=== PATIENT | female | born 1980 | race Caucasian/White ===

== ENCOUNTER 2024-02-16 21:19 | Inpatient (IN) | payer MEDICARE, MEDICAID, SELFPAY ==
--- NOTE | ~2024-02-16 | CT_ITS ---
CT of the Abdomen and Pelvis: Indication: Abdominal pain Technique: 2.5 mm axial scans were obtained through the abdomen and pelvis following intravenous adm inistration of 100 cc of Omnipaque 350. Dose reduction technique was used on this scan by utilizing a utomated exposure control and iterative reconstruction technique. The dose-length product (DLP) was 9 06.76 mGy-cm. Findings: Scans through the lung bases are unremarkable. The liver, pancreas, gallbladder, adrenals and kidneys are within normal limits. Probable splenic cys t present. No evidence of aortic aneurysm. No lymphadenopathy. No bowel obstruction or bowel wall thickening. There is no evidence to suggest acute appendicitis. Images through the pelvis were performed. Suspected urinary bladder wall thickening diffusely. No pel gaby mass seen. No ascites. L2 compression fracture present, likely chronic. Impression: Suspected cystitis. Correlate with urinalysis. L2 compression fracture, likely chronic. Reviewed, dictated and finalized at [facility]. Impression: Suspected cystitis. Correlate with urinalysis. L2 compression fracture, likely chronic.
--- NOTE | ~2024-02-16 | XR_ITS ---
EXAM: XR knee RT 3V DATE: 02/17/2024 16:09 HISTORY: Fall . COMPARISON: None available. FINDINGS: Normal mineralization. No fracture or dislocation. No lytic or blastic lesion. Moderate la teral joint space narrowing. Quadriceps enthesopathy. Mild patellofemoral and lateral compartment ost eophytosis. No erosion or periosteal change. Soft tissues within normal limits. IMPRESSION: No acute osseous finding in the right knee. Reviewed, dictated and finalized at location K.
--- NOTE | ~2024-02-16 | CT_ITS ---
Non-contrast Head CT History: Altered mental status Technique: Axial non-contrast imaging of the brain was performed. Dose reduction technique was used on this scan by utilizing automated exposure control and iterative reconstruction technique. The dose -length product (DLP) was 605.33 mGy-cm. Findings: There is no evidence of intracranial hemorrhage, mass lesion, or acute infarct. Brain par enchyma appears normal. The ventricles and subarachnoid spaces are normal in size. The calvarium ap pears normal. There are bilateral maxillary sinus retention cysts or polyps. The remaining visualized paranasal sinuses and mastoid air cells are clear. Impression: No intracranial abnormality seen. Mild sinus disease, as above. Reviewed, dictated and finalized at [facility]. Impression: No intracranial abnormality seen. Mild sinus disease, as above.
--- NOTE | ~2024-02-16 | XR_ITS ---
Portable chest x-ray Comparison: None Clinical History: Altered mental status Findings: Lungs are clear, without focal consolidation or pleural effusion. Cardiomediastinal silho uette is unremarkable. Bones and soft tissues are unremarkable. Impression: Clear lungs. Reviewed, dictated and finalized at location [facility]. Impression: Clear lungs.
[2024-02-16 21:16] VITALS: BP 101/64; PULSE 87; RESP 19; TEMP 36.4; O2SAT 100
--- NOTE | 2024-02-16 22:24 | ED.ABDPAIN ---
HPI - Abdominal Pain General Chief Complaint: Abdominal Pain Stated Complaint: Abdominal Pain Time Seen by Provider: 02/16/24 21:20 History of Present Illness HPI narrative: 43-year-old female with a history of severe intellectual disability, bipolar disorder type 1 with psychotic features, AFib, history of blood clots, constipation, chronic anticoagulation with Xarelto presents emergency department with a caregiver at bedside for altered mental status. The following history is provided by patient's caregiver. States patient has been in and out of multiple hospitals including multiple [facility] and [facility]. She has been evaluated in the ED and admitted for confusion, decreased p.o. intake, diarrhea. At one point she was diagnosed with the UTI and was started on Keflex and was discontinued due to diarrhea. She lives at [facility] living [facility] in [place]. The patient's caregivers of her historian and is unable to provide many details. She does state earlier today she noticed a pink tension the patient's urine. States she has had decreased energy and has been refusing showers and will sit in her urine and feces which is abnormal for her. Also states the patient keeps forgetting the caregivers name and that is also abnormal for her. Her mother Alex Zee is her POA who resides at [place]. Patient is a poor historian, however upon questioning she is reporting pain to her suprapubic abdomen, burning with urination and diarrhea. Related Data Allergies Allergy/AdvReac Type Severity Reaction Status Date / Time aripiprazole [From Abilify] Allergy Unknown Verified 02/16/24 21:33 bee pollen Allergy Unknown Verified 02/16/24 21:33 haloperidol [From Haldol] Allergy Unknown Verified 02/16/24 21:33 lithium Allergy Unknown Verified 02/16/24 21:33 quetiapine [From Seroquel] Allergy Unknown Verified 02/16/24 21:33 Review of Systems Review of Systems: CONSTITUTIONAL: Denies fever, chills, or sweats. EYES: Denies visual changes, redness, or discharge. ENT: Denies rhinorrhea, congestion, sore throat, or otalgia. CARDIOVASCULAR: Denies chest pain, palpitations, or edema. RESPIRATORY: Denies cough or dyspnea. GASTROINTESTINAL: See HPI GENITOURINARY: Denies dysuria or hematuria. SKIN: Denies rash or itching. MUSCULOSKELETAL: Denies back pain, joint pain, or myalgia. NEUROLOGIC: see HPI PSYCHIATRIC: Denies anxiety or depression. Exam Narrative: GENERAL: Well-appearing, well-nourished, and in no acute distress. Nontoxic appearing. Pleasant and conversational HEAD: Normocephalic, atraumatic. EYES: PERRLA and EOMI. ENT: Nares clear, no rhinorrhea or epistaxis. Mucous membranes moist. NECK: Supple. CHEST: Clear to auscultation. No respiratory distress. HEART: Regular rate and rhythm. No murmur heard. Normal peripheral pulses. ABDOMEN: Normoactive bowel sounds. Abdomen soft mild tenderness in the suprapubic region. No rebound, guarding or rigidity. No CVA tenderness. EXTREMITIES: Normal range of motion. No edema. SKIN: Warm, dry, no rash. NEURO: No focal deficits. Alert and oriented x1. Moving all extremities spontaneously Course Vital Signs Vital signs: Vital Signs Temperature 97.6 F 02/16/24 21:16 Pulse Rate 87 02/16/24 21:16 Respiratory Rate 19 02/16/24 21:16 Blood Pressure 101/64 02/16/24 21:16 Pulse Oximetry 100 02/16/24 21:16 Oxygen Delivery Room Air 02/16/24 21:16 Temperature 97.6 F 02/16/24 21:16 Pulse Rate 77 02/16/24 23:31 Respiratory Rate 14 02/16/24 23:31 Blood Pressure 110/70 02/16/24 23:31 Pulse Oximetry 100 02/16/24 23:31 Oxygen Delivery Room Air 02/16/24 21:16 MDM - Abdominal Pain MDM Narrative Medical decision making narrative: 43-year-old female with a history of severe intellectual disability, bipolar disorder type 1 with psychotic features, AFib, history of blood clots, constipation, chronic anticoagulation with Xarelto presents emergency
--- NOTE | 2024-02-16 22:34 | ECG_ITS ---
SEE SCANNED COPY FOR CONFIRMED REPORT MTDD
[2024-02-16 23:28] LABS: Basophils Absolute Auto 0.1 K/mm3 (0.0-0.1); Basophils Percent Auto 0.7 % (0.2-1.2); Eosinophils Absolute Auto 0.1 K/mm3 (0-0.3); Eosinophils Percent Auto 1.3 % (0-4.4); Hematocrit 41.5 % (37.0-47.0); Hemoglobin 13.4 g/dL (12.0-15.0); Immature Granulocyte Absolute 0.15 K/mm3 (0.00-0.031); Immature Granulocyte Percent A 2.1 % (0-0.5); Lymphocytes Absolute Auto 2.34 K/mm3 (0.9-3.2); Mean Corpuscular HGB Conc 32.3 g/dl (32-36); Mean Corpuscular Hemoglobin 30.7 pg (26-34); Mean Corpuscular Volume 95.2 fl (80-100); Mean Platelet Volume 11.2 fl (7.4-10.4); Monocytes Absolute Auto 0.7 K/mm3 (0.1-0.6); Monocytes Percent Auto 9.2 % (2.6-8.5); Neutrophils Absolute Auto 3.8 K/mm3 (1.3-6.7); Neutrophils Percent Auto 53.7 % (45.5-73.1); Platelet Count Result 118 k/mm3 (150-375); Red Blood Count 4.36 M/mm3 (4.2-5.4); Red Cell Distribution Width 14.9 % (11.5-14.5); White Blood Count 7.1 K/mm3 (4.5-10.0)
[2024-02-16] MEDS: SODIUM CHLORIDE 0.9% IV 1,000 ML 999 ML IV CONT (23:29)
[2024-02-16 23:31] VITALS: BP 110/70; PULSE 77; RESP 14; O2SAT 100
--- NOTE | 2024-02-16 23:45 | PC.NURSE ---
care and report given to VICTOR MANUEL Shaikh. all questions answered.
[2024-02-16 23:48] LABS: Troponin I < 0.012 ng/mL (0.000-0.034)
[2024-02-16 23:49] LABS: Alanine Aminotransferase 21 U/L (6-35); Albumin Level 3.4 g/dL (3.5-5.1); Alkaline Phosphatase 81 U/L (38-126); Anion Gap 3 mmol/L (4-12); Aspartate Amino Transferase 34 U/L (14-36); Bilirubin,Total 0.6 mg/dL (0.2-1.3); Blood Urea Nitrogen 13 mg/dL (7-17); Calcium 8.8 mg/dL (8.4-10.2); Carbon Dioxide 24 mmol/L (22-30); Chloride 109 mmol/L (98-107); Estimated CRCL calculation 85 ml/min; Estimated Glomerular Filt Rate > 60; Glucose 71 mg/dL (65-110); Lipase 54 U/L (23-300); Potassium 4.6 mmol/L (3.4-5.0); Sodium 136 mmol/L (137-145)
[2024-02-17 00:18] LABS: Creatine Kinase 37 U/L (30-135)
[2024-02-17 01:25] LABS: Appearance Urine Clear (Clear); Bacteria Urine None Seen /hpf; Bilirubin Urine Negative (Negative); Blood Urine 2+ (Negative); Color Urine Yellow (Yellow); Glucose Urine UA Negative (Negative); Ketones Urine 1+ mg/dL (Negative); Leukocyte Esterase Ur 3+ LEU/UL (Negative); Nitrate Urine Negative (Negative); Non Pathogenic Casts 0-2; Protein Urine Negative (Negative); RBC Urine 21-50 /hpf (0-2); Specific Grav Ur 1.007 (1.001-1.035); Squamous Epithelial Cell Urine None Seen /hpf (Few); Urobilinogen Urine 0.2 mg/dL (<2.0); WBC Urine 51-100 /hpf (0-3); pH Urine 7.5 (5.0-9.0)
[2024-02-17 01:34] LABS: Amphetamine Screen Urine Negative (Negative); Barbiturate Screen Urine Negative (Negative); Benzodiazepines Screen Urine Negative (Negative); Cannabinoid Screen Urine Negative (Negative); Cocaine Screen Urine Negative (Negative); Methadone Screen Urine Negative (Negative); Opiate Screen Urine Negative (Negative); Phencyclidine Screen Urine Negative (Negative)
[2024-02-17 02:05] LABS: Add Urine Microscopic? YES
[2024-02-17 02:05] LABS: Partial Thromboplastin Time 28.5 Seconds (22.3-36.8)
[2024-02-17 02:33] LABS: INR 1.4; Prothrombin Time 17.7 Seconds (11.1-14.7)
--- NOTE | 2024-02-17 04:02 | PM.IMHP ---
H&P: HPI History of Present Illness Date/Time: 02/17/24 04:02 Chief Complaint: generalized weakness Narrative: This is a 43-year-old female with past medical history significant for intellectual disability, patient was brought to the emergency room due to generalized weakness, diarrhea, fatigue, altered mental status, States that patient was unable to recognize her. Has had admissions to to outside hospitals however can not really contribute much to history taking in a meaningful way. here preliminary workup was significant for urinalysis was numerous WBCs present. At the time of this dictation chest x-ray CT of abdomen and pelvis and head are pending. patient was started on Rocephin and has been admitted for further evaluation management and treatment. Portable chest x-ray Comparison: None Clinical History: Altered mental status Findings:? Lungs are clear, without focal consolidation or pleural effusion.? Cardiomediastinal silhouette is unremarkable. Bones and soft tissues are unremarkable. ? Impression: ? Clear lungs. CT of the Abdomen and Pelvis: Indication: Abdominal pain Technique:? 2.5 mm axial scans were obtained through the abdomen and pelvis following intravenous administration of 100 cc of Omnipaque 350. Dose reduction technique was used on this scan by utilizing automated exposure control and iterative reconstruction technique. The dose-length product (DLP) was 906.76 mGy-cm. Findings:? Scans through the lung bases are unremarkable. The liver, pancreas, gallbladder, adrenals and kidneys are within normal limits. Probable splenic cyst present. No evidence of aortic aneurysm.? No lymphadenopathy. No bowel obstruction or bowel wall thickening. There is no evidence to suggest acute appendicitis. Images through the pelvis were performed. Suspected urinary bladder wall thickening diffusely. No pelvic mass seen. No ascites. L2 compression fracture present, likely chronic. Impression: Suspected cystitis. Correlate with urinalysis. L2 compression fracture, likely chronic. Non-contrast Head CT History: Altered mental status Technique:? Axial non-contrast imaging of the brain was performed. Dose reduction technique was used on this scan by utilizing automated exposure control and iterative reconstruction technique. The dose-length product (DLP) was 605.33 mGy-cm. Findings:? There is no evidence of intracranial hemorrhage, mass lesion, or acute infarct.? Brain parenchyma appears normal.? The ventricles and subarachnoid spaces are normal in size.? The calvarium appears normal. There are bilateral maxillary sinus retention cysts or polyps. The remaining visualized paranasal sinuses and mastoid air cells are clear. Impression: No intracranial abnormality seen. Mild sinus disease, as above. EXAM:? XR knee RT 3V DATE: 02/17/2024 16:09 HISTORY: Fall . COMPARISON:? None available. FINDINGS:? Normal mineralization. No fracture or dislocation. No lytic or blastic lesion. Moderate lateral joint space narrowing. Quadriceps enthesopathy. Mild patellofemoral and lateral compartment osteophytosis. No erosion or periosteal change. Soft tissues within normal limits. IMPRESSION: No acute osseous finding in the right knee. Review of Systems Review of Systems: ROS unobtainable: Yes unobtainable due to medical condition ( Intellectual disability, delirium) [facility] Social History Social History Smoking status: Never smoker Alcohol intake: never Substance use: never Spiritual care concerns: No Meds Home Medications and Allergies Home Medications Medication Instructions Recorded Confirmed Type calcium carbonate 1,000 1 tablet PO Q4-6H PRN Indigestion 02/17/24 02/17/24 History mg-simethicone 60 mg chewable tablet cholecalciferol (vitamin D3) 50 50 mcg PO DAILY 02/17/24 02/17/24 History mcg (2,000 unit) tablet citalop
[2024-02-17 05:07] VITALS: BP 128/81; PULSE 73; RESP 16; O2SAT 100
[2024-02-17 05:29] VITALS: BMI 24.5
[2024-02-17 05:37] VITALS: BMI 24.5
[2024-02-17 06:00] VITALS: BP 101/68; PULSE 73; RESP 18; TEMP 36.5; O2SAT 100
[2024-02-17 06:37] LABS: Lactic Acid Reflex 0.8 mmol/L (0.7-2.0)
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
[2024-02-17 10:31] VITALS: PULSE 73; RESP 18; O2SAT 100
[2024-02-17 12:49] LABS: Salicylate < 1.0 mg/dL (2-20)
[2024-02-17 12:50] LABS: Acetaminophen < 10 ug/mL (10-30)
[2024-02-17 14:00] VITALS: BP 87/60; PULSE 76; RESP 14; TEMP 36.6; O2SAT 99
[2024-02-17] MEDS: SODIUM CHLORIDE 0.9% IV 500 ML IV CONT (14:17)
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
[2024-02-17] MEDS: SODIUM CHLORIDE 0.9% IV 1,000 ML 999 ML IV CONT (16:22)
--- NOTE | 2024-02-17 18:32 | PC.NURSE ---
Addendum entered by Nevaeh Cardenas RN 02/17/24 18:37: MD AWARE Original Note: Patient becoming increasingly agitated and fearful of staff. Lost IV access, patient will not allow staff to attempt another one. Hospitalist ordered tele, pt is refusing to let staff put the monitor on. Kicking and hitting. Will give the patient time to relax and de-escalate appropriately.
[2024-02-17 20:00] LABS: Phosphorus 4.1 mg/dL (2.5-4.5)
--- NOTE | 2024-02-17 21:28 | PC.NURSE ---
Pt's mother (POA) called to check on patient. The POA asked for patient to become a confidential patient and would like to give a passcode that has to be used in order to give information about the patient. Passcode [id number]. POA also requested to add sister as secondary contact.
[2024-02-18 05:35] VITALS: BP 99/59; PULSE 94; RESP 17; TEMP 36.6; O2SAT 100
[2024-02-18 05:56] LABS: Basophils Absolute Auto 0.1 K/mm3 (0.0-0.1); Basophils Percent Auto 1.1 % (0.2-1.2); Eosinophils Percent Auto 0.6 % (0-4.4); Hematocrit 37.8 % (37.0-47.0); Hemoglobin 12.2 g/dL (12.0-15.0); Immature Granulocyte Absolute 0.14 K/mm3 (0.00-0.031); Immature Granulocyte Percent A 2.3 % (0-0.5); Immature Platelet Fraction Pct 4.4 % (0.9-11.2); Lymphocytes Absolute Auto 2.68 K/mm3 (0.9-3.2); Lymphocytes Percent Auto 43.2 % (18.3-44.2); Mean Corpuscular HGB Conc 32.3 g/dl (32-36); Mean Corpuscular Hemoglobin 31.3 pg (26-34); Mean Corpuscular Volume 96.9 fl (80-100); Monocytes Absolute Auto 1.2 K/mm3 (0.1-0.6); Monocytes Percent Auto 19.5 % (2.6-8.5); Neutrophils Absolute Auto 2.1 K/mm3 (1.3-6.7); Neutrophils Percent Auto 33.3 % (45.5-73.1); Platelet Count Result 126 k/mm3 (150-375); Red Cell Distribution Width 15.1 % (11.5-14.5); White Blood Count 6.2 K/mm3 (4.5-10.0)
[2024-02-18 06:07] LABS: Ammonia < 9 umol/L (9-30)
[2024-02-18 06:11] LABS: Alanine Aminotransferase 17 U/L (6-35); Alkaline Phosphatase 82 U/L (38-126); Anion Gap 8 mmol/L (4-12); Aspartate Amino Transferase 20 U/L (14-36); Bilirubin,Total 0.4 mg/dL (0.2-1.3); Blood Urea Nitrogen 16 mg/dL (7-17); Calcium 8.6 mg/dL (8.4-10.2); Carbon Dioxide 20 mmol/L (22-30); Chloride 112 mmol/L (98-107); Creatine Kinase 30 U/L (30-135); Estimated CRCL calculation 85 ml/min; Estimated Glomerular Filt Rate > 60; Glucose 121 mg/dL (65-110); Magnesium 1.9 mg/dL (1.6-2.3); Phosphorus 5.3 mg/dL (2.5-4.5); Potassium 3.7 mmol/L (3.4-5.0); Sodium 140 mmol/L (137-145)
[2024-02-18 06:31] LABS: Procalcitonin 0.1 ng/mL
[2024-02-18 08:00] VITALS: O2SAT 94
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
[2024-02-18] MEDS: DIVALPROEX SODIUM ER 500 MG TAB.24H 1000 MG PO ×2 (09:58→21:07)
[2024-02-18] MEDS: CITALOPRAM HYDROBROMIDE 20 MG TABLET PO (09:58)
[2024-02-18] MEDS: RIVAROXABAN 20 MG TABLET PO (09:59)
[2024-02-18] MEDS: MULTIVITAMINS THERAPEUTIC TAB (*BKC) 1 TABLET PO (09:59)
[2024-02-18] MEDS: THIAMINE HCL 100 MG TABLET PO (09:59)
--- NOTE | 2024-02-18 10:32 | PC.NURSE ---
This RN made a call to the facility of this patient to discuss the need for clozapine to be brought in because we do not have it here. Initially the woman stated she would bring it in until she asked for the patients room number. At this time This RN informed her she could not receive any information and would need to leave the medication at the front office spec. At this time she became frustrated and questioned why she is able to bring the patients medications but cannot receive any information Will follow up to ensure the medication will be brought in.
[2024-02-18 12:54] VITALS: BMI 24.5
[2024-02-18 14:00] VITALS: BP 100/59; PULSE 93; RESP 22; TEMP 36.1; O2SAT 90
--- NOTE | 2024-02-18 15:28 | PHAR ---
Addendum entered by Marla VizcainoPh. 02/18/24 15:35: TAKE ONE TABLET EVERY MORING Original Note: RX [id number] IDENTIFIED TO CONTAIN DRUG NAME: CLOZAPINE INGREDIENTS: CLOZAPINE -- 50 MG COLOR: PALE YELLOW SHAPE: NIGHTMUTE IMPRINT: 55 ; C C IMPRINT CODE DESCRIPTION: TABLET IS DEBOSSED C SCORELINE C ON ONE SIDE AND 55 ON THE OTHER SIDE. FORM: ORAL TABLET
--- NOTE | 2024-02-18 15:29 | PHAR ---
RX [id number] IDENTIFIED TO CONTAIN DRUG NAME: CLOZAPINE INGREDIENTS: CLOZAPINE -- 100 MG COLOR: PALE YELLOW SHAPE: CHIGNIK LAGOON IMPRINT: 57 ; C C IMPRINT CODE DESCRIPTION: TABLET IS DEBOSSED C SCORELINE C ON ONE SIDE AND 57 ON THE OTHER SIDE. FORM: ORAL TABLET ONE AND ON-HALF TABS (150MG) EVERY EVENING
--- NOTE | 2024-02-18 16:48 | PC.NURSE ---
home medications locked in patient closet.
[2024-02-18 20:59] VITALS: BP 93/63; PULSE 94; RESP 16; TEMP 36.6; O2SAT 98
[2024-02-19 05:30] LABS: Basophils Absolute Auto 0.2 K/mm3 (0.0-0.1); Basophils Percent Auto 1.8 % (0.2-1.2); Eosinophils Absolute Auto 0.2 K/mm3 (0-0.3); Eosinophils Percent Auto 1.7 % (0-4.4); Hematocrit 41.5 % (37.0-47.0); Hemoglobin 12.8 g/dL (12.0-15.0); Immature Granulocyte Absolute 0.29 K/mm3 (0.00-0.031); Immature Granulocyte Percent A 3.3 % (0-0.5); Immature Platelet Fraction Pct 5.1 % (0.9-11.2); Lymphocytes Percent Auto 52.8 % (18.3-44.2); Mean Corpuscular HGB Conc 30.8 g/dl (32-36); Mean Corpuscular Hemoglobin 30.8 pg (26-34); Mean Platelet Volume 11.4 fl (7.4-10.4); Monocytes Absolute Auto 1.1 K/mm3 (0.1-0.6); Monocytes Percent Auto 12.3 % (2.6-8.5); Neutrophils Absolute Auto 2.5 K/mm3 (1.3-6.7); Neutrophils Percent Auto 28.1 % (45.5-73.1); Platelet Count Result 131 k/mm3 (150-375); Red Blood Count 4.15 M/mm3 (4.2-5.4); Red Cell Distribution Width 15.5 % (11.5-14.5); White Blood Count 8.7 K/mm3 (4.5-10.0)
[2024-02-19 05:36] VITALS: BP 92/57; PULSE 83; RESP 16; TEMP 36.6; O2SAT 100
[2024-02-19 05:43] LABS: Alanine Aminotransferase 22 U/L (6-35); Albumin Level 3.1 g/dL (3.5-5.1); Alkaline Phosphatase 79 U/L (38-126); Anion Gap 9 mmol/L (4-12); Aspartate Amino Transferase 33 U/L (14-36); Bilirubin,Total 0.5 mg/dL (0.2-1.3); Blood Urea Nitrogen 15 mg/dL (7-17); Calcium 8.7 mg/dL (8.4-10.2); Carbon Dioxide 19 mmol/L (22-30); Chloride 115 mmol/L (98-107); Creatine Kinase 30 U/L (30-135); Estimated CRCL calculation 85 ml/min; Estimated Glomerular Filt Rate > 60; Glucose 114 mg/dL (65-110); Phosphorus 4.2 mg/dL (2.5-4.5); Potassium 3.3 mmol/L (3.4-5.0); Sodium 143 mmol/L (137-145)
[2024-02-19] MEDS: DIVALPROEX SODIUM ER 500 MG TAB.24H 1000 MG PO ×2 (08:42→21:00)
[2024-02-19] MEDS: THIAMINE HCL 100 MG TABLET PO (08:42)
[2024-02-19] MEDS: RIVAROXABAN 20 MG TABLET PO (08:42)
[2024-02-19] MEDS: MULTIVITAMINS THERAPEUTIC TAB (*BKC) 1 TABLET PO (08:42)
[2024-02-19] MEDS: CITALOPRAM HYDROBROMIDE 20 MG TABLET PO (08:42)
--- NOTE | 2024-02-19 11:00 | PM.IMPN ---
Progress Note: A&P Assessment and Plan (1) Intellectual disability: Code(s): F79 - Unspecified intellectual disabilities Status: Acute (2) Urinary tract infection: Qualifiers: Hematuria presence: with hematuria Urinary tract infection type: acute cystitis Qualified Code(s): N30.01 - Acute cystitis with hematuria Code(s): N39.0 - Urinary tract infection, site not specified Status: Acute (3) Altered mental status: Qualifiers: Altered mental status type: unspecified Qualified Code(s): R41.82 - Altered mental status, unspecified Code(s): R41.82 - Altered mental status, unspecified Status: Acute Plan This is a 43-year-old female with history of intellectual disability, bipolar disorder type 1 with psychotic features, paroxysmal atrial fibrillation, history of blood clot on Xarelto, constipation who resides at a fdc called [facility] in [place]. The patient herself is an unreliable historian. History is taken from nursing team, ER staff, chart review. Reportedly, the patient has been in and out of the hospitals including [facility] an [facility] being evaluated for confusion decreased p.o. intake and diarrhea. At 1 point she was diagnosed with UTI and started on Keflex. She is again brought in by her caregiver who unable to provide many details but states she noticed pink tinge in the patient's urine the patient has had decreased energy and refusing showers and will sit in her urine and feces and is only A&O x1 and forget her caregiver's name which is abnormal for her. The patient's POA is her mother Erendira Zee who resides in [place]. In [place] ER evaluation revealed vitals within normal limits white blood cell count 7.1 platelet count 118 hemoglobin 13.4 INR 1.4 sodium 136 chloride 109 serum creatinine 0.70 with normal liver function test normal lipase normal TSH albumin 3.4. Urinalysis indicative of UTI and urine culture pending. Blood cultures pending. Ceftriaxone IV given. CT head unremarkable. CT abdomen pelvis indicative of cystitis. Chest x-ray unremarkable. December 19 update: Reportedly the mother is going to arrive tonight. He has been accepted at [facility], discussions to be finalized with coordination in the mother on disposition. The patient continues to be pleasant, no reports of overly aggressive behavior. Soft blood pressures. Continue ceftriaxone. Continue to draw daily labs for refeeding syndrome monitoring. Urine culture still pending. We have obtained her clozapine from the fdc and have restarted that since 02/17. Acute toxic encephalopathy, resolved. -CT head on admission negative. -it is certainly hard to delineate whether she was cantankerous because of her bipolar and intellectual disability or she had toxic encephalopathy due to UTI. Her behavior seems more so related to psychiatric condition since she has been admitted. -continue ceftriaxone 1 g q.day for at least 7 days. -follow-up blood cultures. Follow-up urine culture -ammonia level, acetaminophen, salicylates normal. Urine tox drug screen negative Intellectual disability with bipolar disorder -continue home medications divalproex 1000 mg p.o. b.i.d., clozapine 150 mg p.o. clozapine is non formulary and we are currently try to obtain that from the fdc. VICTOR MANUEL Reyes will be calling [facility] to have them bring it in. -she apparently takes Benadryl and hydroxyzine p.r.n. at home. It would be prudent to hold these. -avoid pharmacological sedation/narcotics at all cost. If patient becomes physically aggressive then physical restraints is the 1st indicated treatment to prevent adverse effects and complications in evaluating the patient. Patient becomes lord at times but she is not aggressive towards staff thus far. Paroxysmal atrial fibrillation/history of blood clot on Xarelto -currently normal sinus rhythm. Continue Xarelto. History of constipation, now diarrhea -patient has had a hist
[2024-02-19] MEDS: POTASSIUM CHLORIDE 20 MEQ PACKET (FOR LIQUID) PO (12:00)
[2024-02-19] MEDS: POTASSIUM CHLORIDE 20 MEQ ER TABLET PO (12:00)
[2024-02-19 14:10] VITALS: BP 88/57; PULSE 90; RESP 14; TEMP 36.4; O2SAT 100
[2024-02-19 15:12] VITALS: BP 95/64
[2024-02-19 21:15] VITALS: BP 93/64; PULSE 95; RESP 18; TEMP 36.3; O2SAT 100
[2024-02-20 05:47] VITALS: BP 106/72; PULSE 97; RESP 16; TEMP 36.2; O2SAT 100
[2024-02-20 06:28] LABS: Basophils Absolute Auto 0.1 K/mm3 (0.0-0.1); Basophils Percent Auto 0.7 % (0.2-1.2); Eosinophils Absolute Auto 0.2 K/mm3 (0-0.3); Eosinophils Percent Auto 1.7 % (0-4.4); Hematocrit 39.3 % (37.0-47.0); Hemoglobin 11.9 g/dL (12.0-15.0); Immature Granulocyte Absolute 0.67 K/mm3 (0.00-0.031); Immature Granulocyte Percent A 6.2 % (0-0.5); Lymphocytes Absolute Auto 4.91 K/mm3 (0.9-3.2); Lymphocytes Percent Auto 45.2 % (18.3-44.2); Mean Corpuscular HGB Conc 30.3 g/dl (32-36); Mean Corpuscular Hemoglobin 31.6 pg (26-34); Mean Corpuscular Volume 104.2 fl (80-100); Mean Platelet Volume 11.5 fl (7.4-10.4); Monocytes Absolute Auto 1.2 K/mm3 (0.1-0.6); Monocytes Percent Auto 10.7 % (2.6-8.5); Neutrophils Absolute Auto 3.9 K/mm3 (1.3-6.7); Neutrophils Percent Auto 35.5 % (45.5-73.1); Platelet Count Result 152 k/mm3 (150-375); Red Blood Count 3.77 M/mm3 (4.2-5.4); Red Cell Distribution Width 15.3 % (11.5-14.5); White Blood Count 10.9 K/mm3 (4.5-10.0)
[2024-02-20 07:03] LABS: Anisocytosis 1+; Hypochromasia 1+; Macrocytosis 1+ (NORMAL); Platelet Estimate Adequate (Adequate); Schistocytes None Seen
[2024-02-20 07:31] LABS: Procalcitonin 0.1 ng/mL
[2024-02-20 08:25] LABS: Alanine Aminotransferase 23 U/L (6-35); Albumin Level 2.9 g/dL (3.5-5.1); Alkaline Phosphatase 68 U/L (38-126); Anion Gap 7 mmol/L (4-12); Aspartate Amino Transferase 36 U/L (14-36); Bilirubin,Total 0.5 mg/dL (0.2-1.3); Blood Urea Nitrogen 13 mg/dL (7-17); Calcium 8.9 mg/dL (8.4-10.2); Carbon Dioxide 16 mmol/L (22-30); Chloride 118 mmol/L (98-107); Estimated CRCL calculation 98 ml/min; Estimated Glomerular Filt Rate > 60; Glucose 75 mg/dL (65-110); Phosphorus 3.8 mg/dL (2.5-4.5); Potassium 4.6 mmol/L (3.4-5.0); Sodium 141 mmol/L (137-145)
[2024-02-20] MEDS: CITALOPRAM HYDROBROMIDE 20 MG TABLET PO (08:28)
[2024-02-20] MEDS: MULTIVITAMINS THERAPEUTIC TAB (*BKC) 1 TABLET PO (08:28)
[2024-02-20] MEDS: RIVAROXABAN 20 MG TABLET PO (08:29)
[2024-02-20] MEDS: DIVALPROEX SODIUM ER 500 MG TAB.24H 1000 MG PO (08:30)
[2024-02-20] MEDS: THIAMINE HCL 100 MG TABLET PO (08:30)
[2024-02-20] MEDS: FLUTICASONE PROPIONATE 0.05% NA SPR 16 GM BTL (*BKC) 2 SPRAY NASAL (08:43)
[2024-02-20] MEDS: AMOXICILLIN 500 MG CAPSULE PO ×2 (10:41→13:09)
[2024-02-20 12:55] LABS: SARS-CoV-2 RNA PCR Negative (Negative)
--- NOTE | 2024-02-20 13:25 | PCOTNOTE ---
Attempted to see pt for OT however pt currently working with PT. Will continue to follow.
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
[2024-02-20 13:32] VITALS: BP 120/90; PULSE 120; RESP 20; TEMP 36.6; O2SAT 99
== END 2024-02-20 14:40 | DRG 689 ==
LOC: ANHED 02-17 04:02 → ANH3MEDSUR 02-17 04:26
PROVIDERS: Admitting Provider Internal Medicine; Emergency Provider Physician Assistant; Visit Provider General Practice
DX: N30.01 Acute cystitis with hematuria (principal); G92.9 Unspecified toxic encephalopathy; F31.89 Other bipolar disorder; T76.91XA Unspecified adult maltreatment, suspected, initial encounter; F79 Unspecified intellectual disabilities; T73.0XXA Starvation, initial encounter; B95.2 Enterococcus as the cause of diseases classified elsewhere; R41.82 Altered mental status, unspecified; I95.9 Hypotension, unspecified; I48.0 Paroxysmal atrial fibrillation; S40.022A Contusion of left upper arm, initial encounter; S40.021A Contusion of right upper arm, initial encounter; S80.12XA Contusion of left lower leg, initial encounter; S80.11XA Contusion of right lower leg, initial encounter; X58.XXXA Exposure to other specified factors, initial encounter; Z79.01 Long term (current) use of anticoagulants; Z86.718 Personal history of other venous thrombosis and embolism
CPT/HCPCS: 36415; 70450; 71045; 73562; 73610; 74177; 80053; 80307; 81001; 81025; 82140; 82550; 83605; 83690; 83735; 84100; 84145; 84443; 84484; 85025; 85055; 85610; 85730; 87040; 87077; 87086; 87088; 87181; 87635; 93005; 96361; 96365; 97110; 97161; 97165; 97530; 99285; A9270; G0378; J0696; J7030; J7040; Q9967

== ENCOUNTER 2024-03-13 16:12 | Emergency (ER) | payer MEDICARE, MEDICAID, SELFPAY ==
--- NOTE | ~2024-03-13 | CT_ITS ---
CT brain wo con Ordering provider: Charles Talamantes PA-C History: 43 years Female with . AMS, rule out bleed . Comparison: February 19, 2024. Technique: CT of the head without contrast. Radiation reduction technique utilized. FINDINGS: BRAIN PARENCHYMA AND CSF SPACES: Small hyperdense areas seen in the right and left frontal lobe is mo st likely artifactual. Clinical evaluation and follow-up advised. No midline shift, mass effect or he morrhage. The brain parenchyma and CSF spaces are otherwise normal. VISUALIZED PARANASAL SINUSES: Well aerated. MASTOIDS: Well aerated. BONES: The bones appear intact. Hyperostosis frontalis interna. SOFT TISSUES: Visualized nasopharynx is normal. Superficial soft tissues are normal. IMPRESSION: No acute intracranial findings. Reviewed, dictated and finalized at location A.
[2024-03-13 16:09] VITALS: BP 104/71; PULSE 93; RESP 16; TEMP 36.5; O2SAT 100
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
[2024-03-13 19:36] VITALS: BP 112/87; PULSE 84; RESP 17; O2SAT 100
[2024-03-13 19:42] LABS: Basophils Absolute Auto 0.1 K/mm3 (0.0-0.1); Basophils Percent Auto 0.9 % (0.2-1.2); Eosinophils Absolute Auto 0.1 K/mm3 (0-0.3); Eosinophils Percent Auto 0.9 % (0-4.4); Hematocrit 40.9 % (37.0-47.0); Hemoglobin 12.9 g/dL (12.0-15.0); Immature Granulocyte Absolute 0.27 K/mm3 (0.00-0.031); Immature Granulocyte Percent A 3.2 % (0-0.5); Lymphocytes Absolute Auto 3.53 K/mm3 (0.9-3.2); Lymphocytes Percent Auto 41.4 % (18.3-44.2); Mean Corpuscular HGB Conc 31.5 g/dl (32-36); Mean Corpuscular Hemoglobin 31.2 pg (26-34); Mean Corpuscular Volume 98.8 fl (80-100); Mean Platelet Volume 10.6 fl (7.4-10.4); Monocytes Absolute Auto 0.7 K/mm3 (0.1-0.6); Monocytes Percent Auto 8.7 % (2.6-8.5); Neutrophils Absolute Auto 3.8 K/mm3 (1.3-6.7); Neutrophils Percent Auto 44.9 % (45.5-73.1); Platelet Count Result 205 k/mm3 (150-375); Red Blood Count 4.14 M/mm3 (4.2-5.4); Red Cell Distribution Width 14.7 % (11.5-14.5); White Blood Count 8.5 K/mm3 (4.5-10.0)
[2024-03-13 19:53] LABS: Alanine Aminotransferase 10 U/L (6-35); Albumin Level 3.9 g/dL (3.5-5.1); Alkaline Phosphatase 85 U/L (38-126); Anion Gap 6 mmol/L (4-12); Aspartate Amino Transferase 20 U/L (14-36); Bilirubin,Total 0.4 mg/dL (0.2-1.3); Blood Urea Nitrogen 16 mg/dL (7-17); Calcium 9.3 mg/dL (8.4-10.2); Carbon Dioxide 25 mmol/L (22-30); Chloride 110 mmol/L (98-107); Estimated CRCL calculation 84 ml/min; Estimated Glomerular Filt Rate > 60; Glucose 80 mg/dL (65-110); Sodium 141 mmol/L (137-145)
[2024-03-13 20:12] LABS: Appearance Urine Clear (Clear); Bacteria Urine None Seen /hpf; Bilirubin Urine Negative (Negative); Blood Urine 1+ (Negative); Color Urine Yellow (Yellow); Glucose Urine UA Negative (Negative); Ketones Urine Negative (Negative); Leukocyte Esterase Ur Trace LEU/UL (Negative); Need Manual Microscopic Reviewed; Nitrate Urine Negative (Negative); Non Pathogenic Casts 0-2; Protein Urine Negative (Negative); Specific Grav Ur 1.012 (1.001-1.035); Squamous Epithelial Cell Urine Moderate /hpf (Few); Urobilinogen Urine 0.2 mg/dL (<2.0); pH Urine 8.5 (5.0-9.0)
[2024-03-13 20:24] LABS: Add Urine Microscopic? YES
== END 2024-03-13 22:04 ==
PROVIDERS: Emergency Provider Physician Assistant
DX: F31.9 Bipolar disorder, unspecified (principal); I48.91 Unspecified atrial fibrillation; Z79.01 Long term (current) use of anticoagulants; Z03.89 Encounter for observation for other suspected diseases and conditions ruled out
CPT/HCPCS: 36415; 70450; 80053; 81001; 85025; 87086; 99284

== ENCOUNTER 2024-03-15 17:31 | Emergency (ER) | payer MEDICARE, MEDICAID, SELFPAY ==
--- NOTE | ~2024-03-15 | CT_ITS ---
Noncontrast CT scan of the cervical spine Technique: Multiple contiguous axial [address] images of the cervical spine were obtained and rec onstructed in 2D sagittal and coronal planes on the acquisition scanner. Dose reduction technique was used on this scan by utilizing automated exposure control, adjustment of the mA and/or kV according to patient size. The dose-length product (DLP) was 399.52 mGy-cm. Clinical History: Pain Findings: No fractures or dislocations. Unremarkable visualized bony structures. The intervertebral disc spaces are preserved. No prevertebral soft tissue swelling. Impression: No fracture or subluxation of the cervical spine. Reviewed, dictated and finalized at location . Impression: No fracture or subluxation of the cervical spine.
--- NOTE | ~2024-03-15 | CT_ITS ---
Non-contrast Head CT History: Status post fall COMPARISON: 03/17/2024 Technique: Axial non-contrast imaging of the brain was performed. Dose reduction technique was used on this scan by utilizing automated exposure control and iterative reconstruction technique. The dose -length product (DLP) was 983.67 mGy-cm. Findings: There is no evidence of intracranial hemorrhage, mass lesion, or acute infarct. Brain par enchyma appears normal. The ventricles and subarachnoid spaces are normal in size. The calvarium ap pears normal. The visualized paranasal sinuses and mastoid air cells are clear. Impression: No significant abnormality seen. Reviewed, dictated and finalized at location . Impression: No significant abnormality seen.
--- NOTE | ~2024-03-15 | XR_ITS ---
Left Hand Technique: PA, oblique, and lateral views were obtained. Clinical History: Pain Findings: No acute fracture or dislocation is seen. Osseous alignment is anatomic. Joint spaces are p reserved. Soft tissues are unremarkable. Impression: Unremarkable left hand. Reviewed, dictated and finalized at location M. Impression: Unremarkable left hand.
--- NOTE | ~2024-03-15 | XR_ITS ---
Left Knee Technique: AP, lateral, and oblique views were obtained. Clinical History: Pain Findings: No fracture or dislocation is seen. Osseous alignment is anatomic. Joint spaces are preserv ed without degenerative or erosive change. Soft tissues are unremarkable. No joint effusion is seen. Impression: Unremarkable left knee radiographs. Reviewed, dictated and finalized at location . Impression: Unremarkable left knee radiographs.
--- NOTE | ~2024-03-15 | XR_ITS ---
Right Knee Technique: AP, lateral, and oblique views were obtained. Clinical History: Pain Findings: No fracture or dislocation is seen. Osseous alignment is anatomic. Joint spaces are preserv ed without degenerative or erosive change. Soft tissues are unremarkable. No joint effusion is seen. Impression: Unremarkable right knee radiographs. Reviewed, dictated and finalized at [facility]. Impression: Unremarkable right knee radiographs.
[2024-03-15 17:29] VITALS: PULSE 110; RESP 18; TEMP 37.1; O2SAT 100
[2024-03-15 17:42] VITALS: BP 116/64; PULSE 103; RESP 18; O2SAT 99
--- NOTE | 2024-03-15 18:52 | ED.FALL ---
HPI - Fall General Chief Complaint: Fall Stated Complaint: fall Time Seen by Provider: 03/15/24 17:59 Source: patient and old records reviewed Mode of arrival: EMS Limitations: clinical condition History of Present Illness HPI Narrative: Patient is a 43-year-old female, with past medical history of bipolar disorder, intellectual disability, who presents the ED via EMS with report of a fall. Patient is a resident of [facility]. Per group home report, patient had an unwitnessed fall, found on the ground. Patient reports she fell out of bed. Thinks she hit her head. Unsure of LOC. She is on Xarelto d/t hx of pAFIB. Sent here for further evaluation. Patient also complains of pain to her left hip and bilateral knees. No other concerns. States she is hungry. Related Data Home Medications Medication Instructions Recorded Confirmed calcium carbonate 1,000 1 tablet PO Q4-6H PRN Indigestion 02/17/24 02/17/24 mg-simethicone 60 mg chewable tablet cholecalciferol (vitamin D3) 50 50 mcg PO DAILY 02/17/24 02/17/24 mcg (2,000 unit) tablet citalopram 20 mg tablet (Celexa) 20 mg PO DAILY 02/17/24 02/17/24 divalproex 500 mg tablet,extended 1,000 mg PO BID 02/17/24 02/17/24 release 24 hr fluticasone propionate 50 2 spray intranasal DAILY 02/17/24 02/17/24 mcg/actuation nasal spray,suspension magnesium hydroxide 400 mg/5 mL 30 ml PO DAILY PRN Constipation 02/17/24 02/17/24 oral suspension medroxyprogesterone 150 mg/mL 150 mg IM [id number] 02/17/24 02/17/24 intramuscular syringe (Depo-Provera) polyethylene glycol 3350 17 17 g PO DAILY PRN Constipation 02/17/24 02/17/24 gram/dose oral powder (Miralax) rivaroxaban 20 mg tablet (Xarelto) 20 mg PO DAILY 02/17/24 02/17/24 Allergies Allergy/AdvReac Type Severity Reaction Status Date / Time aripiprazole [From Abilify] Allergy Unknown Verified 03/13/24 16:29 bee pollen Allergy Unknown Verified 03/13/24 16:29 haloperidol [From Haldol] Allergy Unknown Verified 03/13/24 16:29 lithium Allergy Unknown Verified 03/13/24 16:29 quetiapine [From Seroquel] Allergy Unknown Verified 03/13/24 16:29 Review of Systems Review of Systems: CONSTITUTIONAL: Denies fever, chills, or sweats. CARDIOVASCULAR: Denies chest pain. RESPIRATORY: Denies dyspnea. GASTROINTESTINAL: Denies abdominal pain, nausea, vomiting MUSCULOSKELETAL: See HPI. NEUROLOGIC: See HPI. All systems reviewed & are unremarkable except as noted in HPI and below [facility] Past Medical History Medical History (Updated 03/15/24 @ 19:55 by Kay Plunkett PA-C) Atrial fibrillation Intellectual disability Starvation due to lack of food Social History Social History Smoking status: Never smoker Alcohol intake: never Substance use: never Spiritual care concerns: No Exam Narrative: GENERAL: Chronically ill appearing, pleasant, obese with BMI 34.4, non-toxic, in no acute distress. HEAD: Normocephalic, atraumatic. RESPIRATORY: Airway patent, respirations nonlabored. Clear to auscultation bilaterally, no rales, rhonchi, wheezing. No focal lung sounds. CARDIOVASCULAR: Regular rate and rhythm without murmurs, rubs, or gallops. ABDOMINAL: Soft, nontender, nondistended. Normoactive BS. MUSCULOSKELETAL: Moves all extremities. No gross deformities. Mild diffuse tenderness to bilateral anterior knees, mild swelling noted to R anterior knee. Trace pitting edema to bilateral lower extremities. SKIN: Warm, dry, normal color. NEURO: A&O X2-3. Answers most questions. Speech clear. No ataxic movements. PSYCHIATRIC: Appropriate mood and affect. Normal interaction. Course Vital Signs Vital signs: Vital Signs Temperature 98.7 F 03/15/24 17:29 Pulse Rate 110 H 03/15/24 17:29 Respiratory Rate 18 03/15/24 17:29 Pulse Oximetry 100 03/15/24 17:29 Oxygen Delivery Room Air 03/15/24 17:29 Temperature 98.7 F 03/15/24 17:29
[2024-03-15 19:33] VITALS: BP 107/73; PULSE 94; RESP 18; O2SAT 99
--- NOTE | 2024-03-15 19:56 | PC.NURSE ---
Spoke with Gilda at [facility] for report
== END 2024-03-15 20:35 ==
PROVIDERS: Emergency Provider Physician Assistant
DX: M25.562 Pain in left knee (principal); M25.561 Pain in right knee; M25.552 Pain in left hip; I48.91 Unspecified atrial fibrillation; Z79.01 Long term (current) use of anticoagulants; W06.XXXA Fall from bed, initial encounter
CPT/HCPCS: 70450; 72125; 73130; 73564; 99284

== ENCOUNTER 2024-03-22 18:56 | Emergency (ER) | payer MEDICARE, MEDICAID, SELFPAY ==
--- NOTE | ~2024-03-22 | XR_ITS ---
[id number] Ordering provider: Fred Vickers MD History: . R rib pain after fall . Comparison: None. FINDINGS: BONES: No acute right rib fracture or fracture of the visualized osseous structures. LUNGS: No effusions or infiltrates. No pneumothorax. Congestive roberto. Interstitial changes seen bilaterally. SOFT TISSUES: Normal. IMPRESSION: No right rib fracture Bilateral interstitial changes in the lungs. Clinical correlation advised. Reviewed, dictated and finalized at location A.
--- NOTE | ~2024-03-22 | CT_ITS ---
CT brain wo con Ordering provider: Fred Vickers MD History: 43 years Female with . Fall . Comparison: March 15, 2024 Technique: CT of the head without contrast. Radiation reduction technique utilized. DLP is 681 mGy. FINDINGS: BRAIN PARENCHYMA AND CSF SPACES: No midline shift, mass effect or hemorrhage. The brain parenchyma a nd CSF spaces are otherwise normal. VISUALIZED PARANASAL SINUSES: Bilateral maxillary sinus disease. MASTOIDS: Well aerated. BONES: The bones appear intact. SOFT TISSUES: Visualized nasopharynx is normal. Superficial soft tissues are normal. IMPRESSION: No acute intracranial findings. Reviewed, dictated and finalized at location A.
--- NOTE | ~2024-03-22 | CT_ITS ---
CT cervical spine wo con Ordering provider: Fred Vickers MD History: . Fall . Comparison: March 15, 2024 Technique: CT of the cervical spine was performed without contrast. Sagittal and coronal reformatted images were also obtained and reviewed. Radiation reduction technique utilized. DLP is 244.54 mGy. FINDINGS: VERTEBRAE: No subluxation or acute fracture. The occipital condyles are intact. DISC SPACES: Normal. PARASPINOUS SOFT TISSUES: Normal. IMPRESSION: No acute osseous abnormality cervical spine. Reviewed, dictated and finalized at location A.
[2024-03-22 19:11] VITALS: BP 118/66; PULSE 99; RESP 18; TEMP 36.8; O2SAT 98
--- NOTE | 2024-03-22 19:24 | ED.GENADULT ---
HPI - General Adult General Chief complaint: Fall Stated complaint: fall Time Seen by Provider: 03/22/24 19:08 History of Present Illness HPI narrative: This is a 43-year-old prison resident with intellectual disability and anticoagulation for atrial fibrillation presenting after a fall. Patient is a poor historian. She says that she fell out of bed her head her neck hurts. She cannot provide me with any other details of the fall due to intellectual disability. she is denying fevers chills chest pain abdominal pain or urinary symptoms. Nausea vomiting diarrhea. Related Data Home Medications Medication Instructions Recorded Confirmed calcium carbonate 1,000 1 tablet PO Q4-6H PRN Indigestion 02/17/24 02/17/24 mg-simethicone 60 mg chewable tablet cholecalciferol (vitamin D3) 50 50 mcg PO DAILY 02/17/24 02/17/24 mcg (2,000 unit) tablet citalopram 20 mg tablet (Celexa) 20 mg PO DAILY 02/17/24 02/17/24 divalproex 500 mg tablet,extended 1,000 mg PO BID 02/17/24 02/17/24 release 24 hr fluticasone propionate 50 2 spray intranasal DAILY 02/17/24 02/17/24 mcg/actuation nasal spray,suspension magnesium hydroxide 400 mg/5 mL 30 ml PO DAILY PRN Constipation 02/17/24 02/17/24 oral suspension medroxyprogesterone 150 mg/mL 150 mg IM [id number] 02/17/24 02/17/24 intramuscular syringe (Depo-Provera) polyethylene glycol 3350 17 17 g PO DAILY PRN Constipation 02/17/24 02/17/24 gram/dose oral powder (Miralax) rivaroxaban 20 mg tablet (Xarelto) 20 mg PO DAILY 02/17/24 02/17/24 Allergies Allergy/AdvReac Type Severity Reaction Status Date / Time aripiprazole [From Abilify] Allergy Unknown Verified 03/13/24 16:29 bee pollen Allergy Unknown Verified 03/13/24 16:29 haloperidol [From Haldol] Allergy Unknown Verified 03/13/24 16:29 lithium Allergy Unknown Verified 03/13/24 16:29 quetiapine [From Seroquel] Allergy Unknown Verified 03/13/24 16:29 [facility] Past Medical History Medical History Atrial fibrillation Intellectual disability Starvation due to lack of food Social History Social History Smoking status: Never smoker Alcohol intake: never Substance use: never Spiritual care concerns: No Exam Narrative: APPEARANCE: No apparent distress.A&O times 1-2 Head: atraumatic. EYES: EOMI, NOSE: Atraumatic NECK: Trachea midline, no midline cervical tenderness RESPIRATORY: No increased rate of breathing clear to auscultation CARDIOVASCULAR: RRR, ABDOMINAL: Non-distended MUSCULOSKELETAl: head to toe trauma exam with tenderness over the right ribcage NEURO: Alert. Cranial nerves 2-12 grossly intact. moving for 4 extremities SKIN:: Warm, dry. Normal color PSYCHIATRIC: Normal affect Course Vital Signs Vital signs: Vital Signs Temperature 98.3 F 03/22/24 19:11 Pulse Rate 99 03/22/24 19:11 Respiratory Rate 18 03/22/24 19:11 Blood Pressure 118/66 03/22/24 19:11 Pulse Oximetry 98 03/22/24 19:11 Oxygen Delivery Room Air 03/22/24 19:11 Temperature 98.3 F 03/22/24 19:11 Pulse Rate 99 03/22/24 19:11 Respiratory Rate 18 03/22/24 19:11 Blood Pressure 118/66 03/22/24 19:11 Pulse Oximetry 98 03/22/24 19:11 Oxygen Delivery Room Air 03/22/24 19:11 Medical Decision Making [facility] Narrative Medical decision making narrative: -Course: 43 year female with intellectual disability presenting from the prison for ground level fall. Complaining of head neck and right rib pain. vital signs stable, no significant signs of trauma and no other complaints. trauma imaging negative. Patient reassessed still resting comfortably in bed with stable vital signs. Patient will be discharged back to a monitored facility. Return if condition changes. -DDX includes but is not limited to: ICH, concussion, soft tissue injury -Co-morbidities complicating care
[2024-03-22 21:03] VITALS: BP 105/87; PULSE 74; RESP 16; O2SAT 98
--- NOTE | 2024-03-22 21:11 | PC.NURSE ---
Pt given pudding and bag of pretzels
== END 2024-03-22 22:25 ==
PROVIDERS: Emergency Provider Emergency Medicine
DX: R51.9 Headache, unspecified (principal); M54.2 Cervicalgia; I48.91 Unspecified atrial fibrillation; W06.XXXA Fall from bed, initial encounter
CPT/HCPCS: 70450; 71101; 72125; 99284